=== PATIENT | female | born 1950 | race Caucasian/White ===

== ENCOUNTER 2017-01-27 00:01 | Emergency (ER) | payer MEDICARE, MEDICAID ==
[~2017-01-27] VITALS: Ht 162.6 cm; Wt 115.9 kg
[2017-01-27 00:03] VITALS: Ht 162.6 cm; Wt 115.9 kg
[2017-01-27] MEDS ORDERED: [UNRECOGNIZED DRUG - REMARK] (01:30)
--- NOTE | 2017-01-27 01:32 | ERD ---
ER Documentation Chief Complaint Date/Time DATE: 01/27/17 TIME: 01:27 Chief Complaint s/p fall hit her head no k.o c/o driscoll HPI 66-year-old female presents here in emergency department for complaints of pain in the back of the head after falling backwards and lower back pain. Patient was using her walker, tried to sit down on her walker, fell backward landing on the back of the head and lower back. Patient described the pain as throbbing pain, 6/10 scale, worse upon touching the scalp and worse upon movement of the back. Patient denies any numbness or tingling. Patient denies any loss of consciousness after the incident. Patient denies any nausea or vomiting. Patient did not take any medications for pain. Patient takes baby aspirin at home. ROS All systems reviewed and are negative except as per history of present illness. Medications Home Meds Active Scripts Acetaminophen* (Tylophen*) 500 Mg Capsule, 1 CAP PO Q6H Y for PAIN AND OR ELEVATED TEMP, #20 CAP Prov:KIRSTEN CABEZAS NP 01/27/17 Cyclobenzaprine Hcl* (Cyclobenzaprine Hcl*) 10 Mg Tablet, 10 MG PO TID, #15 TAB Prov:KIRSTEN CABEZAS NP 01/27/17 Reported Medications [dm meds, copd meds] Unknown Strength No Conflict Check 01/27/17 Allergies Allergies: Coded Allergies: No Known Allergy (Unverified , 01/27/17) PMhx/Soc Medical and Surgical Hx: pt denies Medical Hx, pt denies Surgical Hx Hx Alcohol Use: No Hx Substance Use: No Hx Tobacco Use: No FmHx Family History: No coronary disease, No diabetes, No other Physical Exam Vitals Vital Signs Date Time Temp Pulse Resp B/P Pulse Ox O2 Delivery O2 Flow Rate FiO2 01/27/17 00:03 97.5 97 20 114/71 95 Physical Exam GENERAL: The patient is well developed and appropriate for usual state of health, in no apparent distress. CHEST: Clear to auscultation bilaterally. There are no rales, wheezes or rhonchi. HEART: Regular rate and rhythm. No murmurs, clicks, rubs or gallops. No S3 or S4. ABDOMEN: Soft, nontender and nondistended. Good bowel sounds. No rebound or guarding. No gross peritonitis. No gross organomegaly or masses. No Garcia sign or McBurney point tenderness. BACK: No midline or flank tenderness. Tenderness on palpation in paraspinal aspect of the lumbar spine. EXTREMITIES: Equal pulses bilaterally. There is no peripheral clubbing, cyanosis or edema. No focal swelling or erythema. Full range of motion. Grossly neurovascularly intact. NEURO: Alert and oriented. Cranial nerves 2-12 intact. Motor strength in all 4 extremities with 5/5 strength. Sensation grossly intact. Normal speech and gait. Negative pronator drift. SKIN: There is no apparent rash or petechia. The skin is warm and dry. HEMATOLOGIC AND LYMPHATIC: There is no evidence of excessive bruising or lymphedema. No gross cervical, axillary, or inguinal lymphadenopathy. Results 24 hrs PROCEDURE: CT BRAIN WITHOUT CONTRAST CLINICAL INDICATION: 66-year-old female with trauma. TECHNIQUE: The study was performed utilizing [employer] 64-slice CT scanner. Direct axial sections were obtained from the foramen magnum to the vertex without the use of intravenous contrast material. Sagittal and coronal reformations were obtained. One or more of the following dose reduction techniques were utilized: automated exposure control, adjustment of the mA and/ or kV according to patient's size or use of iterative reconstruction technique. The images were viewed on a PACS workstation. CTD/vol = 43.1 mGy; Total Exam DLP = 720.2 mGy-cm. COMPARISON: None. FINDINGS: There is mild prominence of the sulci and cisternal spaces consistent with diffuse volume loss. Otherwise, the ventricles have a normal shape and position. There is no evidence for mass effect or midline shift. There are bilateral prominent Virchow-Brock spaces with the right side measuring 12 x 11 mm and the left side measuring 8 x 7 mm seen best on axial image 2-14. There is no evidence for acute intra or extra-axial blood. The bony calvarium is intact. The partially visualized paranasal sinuses and mastoid air cells are without significant abnormal soft tissue. IMPRESSION: 1. Mild diffuse volume loss. 2. Prominent bilateral Virchow-Brock spaces. .Josh Waite MD, MD Date Time Electronically viewed and signed by .Josh Waite MD, on 01/27/2017 02:56 .M/ CC: KIRSTEN CABEZAS NP PROCEDURE: CT LUMBAR SPINE WITHOUT CONTRAST CLINICAL INDICATION: 66-year-old female with back pain following trauma. TECHNIQUE: The study was performed utilizing a [employer] CT scanner. Direct axial sections were obtained through the lumbar spine. Coronal and sagittal re-formations were obtained. One or more of the following dose reduction techniques were utilized: automated exposure control, adjustment of the mA and/or kV according to patient's size or use of iterative reconstruction technique. The images were viewed on a PACS workstation. CTD/vol = 38.4 mGy; Total Exam DLP = 915.6 mGy-cm. COMPARISON: No prior studies are available for comparison. FINDINGS: The lumbar vertebral bodies have normal heights without evidence for acute fracture. There appears to be diffuse short pedicles suggestive of congenital spinal stenosis. At L1-2 there is mild diffuse disk bulge and facet arthropathy. This is resulting in minimal bilateral subarticular recess stenosis and mild central spinal stenosis. At L2-3 there is mild disk space narrowing. There is mild diffuse disk bulge and facet arthropathy. There is hypertrophy of the ligamentum flavum. This is resulting in minimal bilateral subarticular recess stenosis and moderate central spinal stenosis. At L3-4 there is minimal anterolisthesis. There is marked bilateral facet arthropathy with gas within the facet joints. There is mild to moderate diffuse disk bulge and hypertrophy of the ligamentum flavum. This is resulting in zblt-fj-[id number] bilateral subarticular recess stenosis and moderate-to- severe central spinal stenosis. At L4-5 there is mild left lateral diffuse disk bulge. There is bilateral facet arthropathy with gas within the facet joints. There is hypertrophy of the ligamentum flavum. This is resulting in moderate right and moderate-to- severe subarticular recess stenosis. There is moderate central spinal stenosis. The L5-S1 space is diminutive and may be transitional. There is a left posterolateral disk osteophyte complex projecting approximately 6 mm beyond the posterior margin resulting in left lateral recess stenosis and encroachment upon the descending left S1 nerve root. There is also moderate left-sided foraminal stenosis. Incidentally noted is a left lower pole renal cyst measuring approximately 4.0 x 5.0 x 5.0 cm. IMPRESSION: 1. No CT evidence for acute lumbar spine fracture. 2. Diffuse short pedicles suggestive of congenital spinal stenosis. 3. Multilevel discogenic and degenerative changes with qkmiqnzi-cn-fpgvpf degrees of spinal stenosis most severe at L3-4 and L4-5. 4. At L5-S1 there is a left posterior disk-osteophyte complex projecting 6 mm resulting in left lateral recess stenosis and encroachment of the descending left S1 nerve root as well as moderate left foraminal stenosis. .Josh Waite MD, MD Date Time Electronically viewed and signed by .Josh Waite MD, MD on 01/27/2017 03:41 .M/ CC: KIRSTEN CABEZAS BOW TACKER Procedures/MDM Medical Decision Making: Patient's back pain is most likely consistent with a back contusion. There is no suspicion for neurovascular compromise. Patient has intact sensation and circulation of the affected extremity and distal extremity. There is low suspicion for septic arthritis. Patient does not have any fever. Radiology exams of the affected area does not show any fracture or dislocation. Low suspicion for cauda equina syndrome, epidural abscess, any acute bacterial infection. Patient pain in back of head consistent with a scalp contusion. There is low suspicion for neurological emergencies at this time since patients neurologic exam is normal. Patient did not have any altered level consciousness, vomiting, changes in balance or memory after incident. Patients CT scan of the head does not show any neurological emergencies at this time. Disposition: Home. Patient is given prescription for Tylenol for mild to moderate pain, continue Percocet you have for severe pain and Flexeril was prescribed for muscle spasm. Patient was advised to rest avoid heavy lifting and apply ice on affected area. Patient was advised that if symptoms are worse , numbness, tingling, high fever, unable to move joint, worsening symptoms, to return to emergency department immediately. Otherwise, patient is advised to follow up with the primary care doctor in 5-7 days for reevaluation of symptoms. Departure Diagnosis: Primary Impression: Scalp contusion Additional Impression: Back contusion Encounter type: initial encounter Laterality: unspecified laterality Qualified Code: S20.229A - Back contusion, unspecified laterality, initial encounter Condition: Stable Patient Instructions: Contusion, Back, Scalp Contusion, No Wake Up Additional Instructions: Patient is given prescription for Tylenol for mild to moderate pain, continue Percocet you have for severe pain and Flexeril was prescribed for muscle spasm. Patient was advised to rest avoid heavy lifting and apply ice on affected area. Patient was advised that if symptoms are worse, numbness, tingling, high fever, unable to move joint, worsening symptoms, to return to emergency department immediately. Otherwise, patient is advised to follow up with the primary care doctor in 5-7 days for reevaluation of symptoms. KIRSTEN CABEZAS NP Jan 27, 2017 01:32
--- NOTE | 2017-01-27 02:56 | RADRPT ---
PROCEDURE: CT BRAIN WITHOUT CONTRAST CLINICAL INDICATION: 66-year-old female with trauma. TECHNIQUE: The study was performed utilizing [employer] V[employer] 64-slice CT scanner. Direct axial sections were obtained from the foramen magnum to the vertex without the use of intravenous contrast material. Sagittal and coronal reformations were obtained. One or more of the following dose reduc tion techniques were utilized: automated exposure control, adjustment of the mA and/or kV according to patient's size or use of iterative reconstruction technique. The images were viewed on a PACS w orkstation. CTD/vol = 43.1 mGy; Total Exam DLP = 720.2 mGy-cm. COMPARISON: None. FINDINGS: There is mild prominence of the sulci and cisternal spaces consistent with diffuse volume loss. Oth erwise, the ventricles have a normal shape and position. There is no evidence for mass effect or mid line shift. There are bilateral prominent Virchow-Brock spaces with the right side measuring 12 x 1 1 mm and the left side measuring 8 x 7 mm seen best on axial image 2-14. There is no evidence for a cute intra or extra-axial blood. The bony calvarium is intact. The partially visualized paranasal si nuses and mastoid air cells are without significant abnormal soft tissue. IMPRESSION: 1. Mild diffuse volume loss. 2. Prominent bilateral Virchow-Brock spaces. .Josh Waite MD, Date Time Electronically viewed and signed by .Josh Waite MD, on 01/27/2017 02:56 .M/
--- NOTE | 2017-01-27 03:42 | RADRPT ---
PROCEDURE: CT LUMBAR SPINE WITHOUT CONTRAST CLINICAL INDICATION: 66-year-old female with back pain following trauma. TECHNIQUE: The study was performed utilizing a [employer] VCT CT scanner. Direct axial section s were obtained through the lumbar spine. Coronal and sagittal re-formations were obtained. One or more of the following dose reduction techniques were utilized: automated exposure control, adjustmen t of the mA and/or kV according to patient's size or use of iterative reconstruction technique. Th e images were viewed on a PACS workstation. CTD/vol = 38.4 mGy; Total Exam DLP = 915.6 mGy-cm. COMPARISON: No prior studies are available for comparison. FINDINGS: The lumbar vertebral bodies have normal heights without evidence for acute fracture. There appears to be diffuse short pedicles suggestive of congenital spinal stenosis. At L1-2 there is mild diffuse disk bulge and facet arthropathy. This is resulting in minimal bilate ral subarticular recess stenosis and mild central spinal stenosis. At L2-3 there is mild disk space narrowing. There is mild diffuse disk bulge and facet arthropathy. There is hypertrophy of the ligamentum flavum. This is resulting in minimal bilateral subarticula r recess stenosis and moderate central spinal stenosis. At L3-4 there is minimal anterolisthesis. There is marked bilateral facet arthropathy with gas with in the facet joints. There is mild to moderate diffuse disk bulge and hypertrophy of the ligamentum flavum. This is resulting in ohcl-xb-irimtmxi bilateral subarticular recess stenosis and moderate-t o-severe central spinal stenosis. At L4-5 there is mild left lateral diffuse disk bulge. There is bilateral facet arthropathy with ga s within the facet joints. There is hypertrophy of the ligamentum flavum. This is resulting in mod erate right and ctmqxinj-ij-wnvaqb subarticular recess stenosis. There is moderate central spinal s tenosis. The L5-S1 space is diminutive and may be transitional. There is a left posterolateral disk osteophy te complex projecting approximately 6 mm beyond the posterior margin resulting in left lateral reces s stenosis and encroachment upon the descending left S1 nerve root. There is also moderate left-paddy ed foraminal stenosis. Incidentally noted is a left lower pole renal cyst measuring approximately 4.0 x 5.0 x 5.0 cm. IMPRESSION: 1. No CT evidence for acute lumbar spine fracture. 2. Diffuse short pedicles suggestive of congenital spinal stenosis. 3. Multilevel discogenic and degenerative changes with zyncytiv-nx-jjqwxw degrees of spinal stenosi s most severe at L3-4 and L4-5. 4. At L5-S1 there is a left posterior disk-osteophyte complex projecting 6 mm resulting in left lat eral recess stenosis and encroachment of the descending left S1 nerve root as well as moderate left foraminal stenosis. .Josh Waite MD, MD Date Time Electronically viewed and signed by .Josh Waite MD, MD on 01/27/2017 03:41 .M/
[2017-01-27] MEDS ORDERED: CYCL-319 PO (04:01)
[2017-01-27] MEDS ORDERED: ACET500C5 PO (04:01)
[2017-01-27 04:18] VITALS: BP 119/58; PULSE 79; RESP 16; TEMP 97.9
== END 2017-01-27 04:30 | disposition home or self-care (01) ==
LOC: FTE 00:01
DX: S00.03XA Contusion of scalp, initial encounter (principal); S20.229A Contusion of unspecified back wall of thorax, initial encounter; W18.39XA Other fall on same level, initial encounter; Y92.9 Unspecified place or not applicable
CPT/HCPCS: 70450; 72131

== ENCOUNTER 2017-02-04 16:41 | Emergency (ER) | payer OTHER, MEDICAID ==
[~2017-02-04] VITALS: Ht 164 cm; Wt 116.4 kg
[~2017-02-04 16:41] MED LIST: ACET500C5 PO; CYCL-319 PO; [UNRECOGNIZED DRUG - REMARK]
[2017-02-04 18:38] VITALS: Ht 164 cm; Wt 116.4 kg
--- NOTE | 2017-02-04 21:49 | ERD ---
ER Documentation Chief Complaint Date/Time DATE: 02/04/17 TIME: 21:45 Chief Complaint told to come in for phys eval, states homeless no place to live. SEE NOTES HPI This is a 66-year-old female who presents the emergency department today complaining of some left foot pain and also a slight headache after hitting her head on her dresser and hitting her toe on her dresser when she was moving out of her place. Patient states that she is currently homeless and does not have a place to live and recently had to move out of her current living situation. Patient states that she called Adult Protective Services and was told to come to the emergency department for evaluation. States that she has chronic pain and many other medical problems for which she takes oxycodone for pain. States that she does have a pain management doctor primary care doctor that does manage her pain. States that she usually uses a wheelchair and walker. Denies any loss of consciousness, dizziness, blurred vision. ROS All systems reviewed and are negative except as per history of present illness. Medications Home Meds Active Scripts Ondansetron Hcl* (Zofran*) 4 Mg Tablet, 4 MG PO Q6H for NAUSEA AND/OR VOMITING, #30 TAB Prov:SARA MARIE PA-C 02/04/17 Acetaminophen* (Tylophen*) 500 Mg Capsule, 1 CAP PO Q6H Y for PAIN AND OR ELEVATED TEMP, #20 CAP Prov:KIRSTEN CABEZAS NP 01/27/17 Cyclobenzaprine Hcl* (Cyclobenzaprine Hcl*) 10 Mg Tablet, 10 MG PO TID, #15 TAB Prov:KIRSTEN CABEZAS NP 01/27/17 Reported Medications [dm meds, copd meds] Unknown Strength No Conflict Check 01/27/17 Allergies Allergies: Coded Allergies: No Known Allergy (Unverified , 01/27/17) PMhx/Soc Hx Psychiatric Problems: Yes (PTSD, Anxiety, Depression) Hx Miscellaneous Medical Probl: Yes (chronic back pain, DM II, GERD ) Hx Alcohol Use: No Hx Substance Use: No Hx Tobacco Use: No Smoking Status: Never smoker Physical Exam Vitals Vital Signs Date Time Temp Pulse Resp B/P Pulse Ox O2 Delivery O2 Flow Rate FiO2 02/04/17 18:38 97.7 73 20 117/58 95 Physical Exam Const: Obese, sitting in wheelchair, no acute distress Head: Atraumatic no evidence of hematoma Eyes: Normal Conjunctiva ENT: Normal External Ears, Nose and Mouth. Neck: Full range of motion..~ No meningismus. Resp: Clear to auscultation bilaterally Cardio: Regular rate and rhythm, no murmurs Abd: Soft, non tender, non distended. Normal bowel sounds Skin: No petechiae or rashes MSK left foot great toe with evidence of subungual hematoma. Mild tenderness palpation. Pulses 2+. Distal neurovascularly intact. Full active range of motion Neur: Awake and alert Psych: Normal Mood and Affect Procedures/MDM This a 66-year-old female who presents the emergency department today complaining of a slight headache and left foot pain after injuring herself and bumping her head and hitting her toe on the dresser. Patient was seen here a couple of weeks ago for a fall that she sustained. Patient at that time had been using her walker and went to sit down and fell backwards and hit her head. She had a negative head CT and spine CT at that time. Patient denied any medication or imaging at this time. I did explain to the patient that given her hematoma I could offer her an x-ray of her toe however she has declined stating that "I do not think it is broken". Patient symptoms at this time is consistent with subungual hematoma. Patient may have acute fracture however the does not appear to be evidence of dislocation. Patient does have full active range of motion of her toe. I did dress the patient's toe. Social work was also called for the patient. It appears that patient's biggest concern is finding housing in she was told to come here to the emergency department by Adult Protective Services. Waiting for the social services, patient indicated to the nurse that she needed to leave right away she found housing and she needed to catch the last bus. Patient was given her discharge paperwork. Prior to leaving patient indicated that she ate something with bowel peppers in it and it makes her stomach feel sick and she was requesting medication for nausea. Patient was given a prescription for Zofran. Patient denies any abdominal pain at this time. Patient was instructed to take her usual pain medication At this time the patient is stable for discharge and outpatient management. Patient should follow up with their PCP in the next 1-2 days. They may return to the emergency department sooner for any persistent or worsening of symptoms. Patient understood and agreed with the plan. Departure Diagnosis: Primary Impression: Multiple complaints Condition: SARA Muller PA-C February 04, 2017 21:49
[2017-02-04] MEDS ORDERED: ONDA4TAB8 PO (23:20)
[2017-02-04 23:25] VITALS: BP 112/62; PULSE 86; RESP 20; TEMP 98.3
== END 2017-02-04 23:25 | disposition home or self-care (01) ==
LOC: FTE 16:41
DX: M79.672 Pain in left foot (principal); R51 Headache; E11.9 Type 2 diabetes mellitus without complications; Z04.3 Encounter for examination and observation following other accident
CPT/HCPCS: 99283

== ENCOUNTER 2018-01-09 20:28 | Emergency (ER) | END 2018-01-09 23:48 | disposition home or self-care (01) ==